=== PATIENT | male | born 1990 | race Caucasian/White ===

== ENCOUNTER 2018-10-11 02:34 | Emergency (ER) | payer SELFPAY ==
[~2018-10-11] VITALS: Ht 185.4 cm; Wt 71.8 kg
[2018-10-11 02:41] VITALS: Ht 185.4 cm; Wt 71.8 kg
[2018-10-11 04:24] VITALS: BP 145/76
== END 2018-10-11 04:25 | disposition home or self-care (01) ==
LOC: ED 02:34
DX: J02.9 Acute pharyngitis, unspecified (principal)
CPT/HCPCS: J0561; J7512

== ENCOUNTER 2018-10-14 06:18 | Emergency (ER) | payer SELFPAY ==
[2018-10-14 06:21] VITALS: Ht 185.4 cm
[2018-10-14 09:35] VITALS: BP 118/78
== END 2018-10-14 09:35 | disposition home or self-care (01) ==
LOC: ED 06:18
DX: J02.9 Acute pharyngitis, unspecified (principal)
CPT/HCPCS: J0456; J1100; J1885; J7030; J7050